=== PATIENT | female | born 1940 | race Caucasian/White ===

== ENCOUNTER 2022-01-14 10:43 | Emergency (ER) | payer OTHER ==
[~2022-01-14] VITALS: Ht 147.3 cm; Wt 77.1 kg
[2022-01-14 10:57] VITALS: BP_SYST 161
[2022-01-14] MEDS ORDERED: PROCHLORPERAZINE EDISYLATE 10 MG/2 ML VIAL IVP ONE (11:45)
[2022-01-14] MEDS ORDERED: KETOROLAC TROMETHAMINE 15 MG VIAL IVP ONE (11:45)
[2022-01-14 11:58] LABS: BASOPHILS # (AUTO) 0.1 K/uL (0.0-0.2); BASOPHILS % (AUTO) 1.1 % (0.0-2.0); HEMATOCRIT 38.4 % (36-48); HEMOGLOBIN 13.1 g/dL (12.0-16.0); LYMPHOCYTES # (AUTO) 1.1 K/uL (1.0-5.5); MEAN CORPUSCULAR HEMOGLOBIN 28 pg (27-31); MEAN CORPUSCULAR HGB CONC 34 % (32-36); MEAN CORPUSCULAR VOLUME 83 fL (79.0-98.0); MONOCYTES # (AUTO) 0.4 K/uL (0.0-1.0); MONOCYTES % (AUTO) 8.4 % (1.7-9.3); NEUTROPHILS # (AUTO) 3.1 K/uL (1.8-7.7); NEUTROPHILS % (AUTO) 66.5 % (40.0-70.0); PLATELET COUNT (AUTO) 250 K/uL (130-430); RED BLOOD CELL COUNT(AUTO) 4.61 MIL/uL (4.2-6.2); RED CELL DISTRIBUTION WIDTH 13.7 % (9.0-15.0); WHITE BLOOD COUNT (AUTO) 4.6 K/uL (4.8-10.8)
[2022-01-14 12:13] LABS: ANION GAP 6 (5-15); CALCIUM 8.6 mg/dL (8.4-11.0); CHLORIDE 97 mmol/L (98-107); CREATININE 0.63 mg/dL (0.55-1.30); GLUCOSE 106 mg/dL (70-99); POTASSIUM 3.7 mmol/L (3.5-5.1); SODIUM SERUM 134 mmol/L (136-145); UREA NITROGEN, BLOOD 10 mg/dL (8-21)
[2022-01-14 12:22] LABS: ALANINE AMINOTRANSFERASE 21 U/L (12-78); ALBUMIN 3.5 g/dL (3.4-4.8); ASPARTATE AMINOTRANSFERASE 19 U/L (10-37); TOTAL BILIRUBIN 0.4 mg/dL (0.0-1.0)
[2022-01-14] MEDS ORDERED: TRAM50TA PO (13:52)
[2022-01-14 14:08] VITALS: BP_SYST 136
== END 2022-01-14 14:07 | disposition home or self-care (01) ==
LOC: SED 10:43
DX: B34.9 Viral infection, unspecified (principal); G44.209 Tension-type headache, unspecified, not intractable; M79.602 Pain in left arm; I10 Essential (primary) hypertension; Z79.899 Other long term (current) drug therapy
CPT/HCPCS: 99285; 96374; 70450; 71045; 96375; 80053; 83880; 85025; 84484; 36415; 93005; 76376; J1885; J0780

== ENCOUNTER 2022-05-28 05:57 | Emergency (ER) | payer OTHER ==
[~2022-05-28] VITALS: Ht 149.9 cm; Wt 81.2 kg
[~2022-05-28 05:57] MED LIST: TRAM50TA PO
[2022-05-28 06:13] VITALS: BP_SYST 141
[2022-05-28 06:51] LABS: BASOPHILS # (AUTO) 0.1 K/uL (0.0-0.2); BASOPHILS % (AUTO) 0.9 % (0.0-2.0); EOSINOPHILS # (AUTO) 0.1 K/uL (0.0-0.4); HEMATOCRIT 35.9 % (36-48); LYMPHOCYTES % (AUTO) 12.1 % (20.5-51.5); MEAN CORPUSCULAR HEMOGLOBIN 28 pg (27-31); MEAN CORPUSCULAR HGB CONC 34 % (32-36); MEAN CORPUSCULAR VOLUME 83 fL (79.0-98.0); MONOCYTES # (AUTO) 0.8 K/uL (0.0-1.0); MONOCYTES % (AUTO) 9.6 % (1.7-9.3); NEUTROPHILS # (AUTO) 6.6 K/uL (1.8-7.7); NEUTROPHILS % (AUTO) 76.4 % (40.0-70.0); PLATELET COUNT (AUTO) 442 K/uL (130-430); RED CELL DISTRIBUTION WIDTH 14.4 % (9.0-15.0); WHITE BLOOD COUNT (AUTO) 8.6 K/uL (4.8-10.8)
[2022-05-28 07:08] LABS: ANION GAP 9 (5-15); CALCIUM 8.7 mg/dL (8.4-11.0); CHLORIDE 101 mmol/L (98-107); CREATININE 0.77 mg/dL (0.55-1.30); GLUCOSE 126 mg/dL (70-99); UREA NITROGEN, BLOOD 13 mg/dL (8-21)
[2022-05-28 07:12] LABS: ALANINE AMINOTRANSFERASE 17 U/L (12-78); ALBUMIN 3.1 g/dL (3.4-4.8); ASPARTATE AMINOTRANSFERASE 13 U/L (10-37); C-REACTIVE PROTEIN QUANT 5.1 mg/dL (0-0.5); TOTAL BILIRUBIN 0.4 mg/dL (0.0-1.0)
[2022-05-28 07:27] LABS: URIC ACID 6.1 mg/dL (2.4-7.0)
[2022-05-28] MEDS: HYDROcodone/ACETAMIN 7.5-325 MG TAB PO ONE (08:30)
[2022-05-28 10:08] LABS: BODY FLUID COLOR YELLOW (LT YELLOW); BODY FLUID SOURCE/ TYPE JOINT; BODY FLUID TOTAL VOLUME 2 mL; SOURCE/TYPE ,BODY FLUID OTHER
[2022-05-28 10:09] LABS: BF APPEARANCE UNSPUN HAZY (CLEAR); LYMPHOCYTES, BODY FLUID 5 %; NEUTROPHIL, BODY FLUID 95 %; RBC, BODY FLUID 72 /uL; WBC, BODY FLUID 99 /uL
[2022-05-28 10:14] LABS: ERYTHROCYTE SEDIMENTATION RATE 62 MM/HR (0-20)
[2022-05-28] MEDS ORDERED: HYDR-3917 PO (10:26)
[2022-05-28 10:33] VITALS: BP_SYST 141
[2022-05-28 11:10] LABS: BODY FLUID CRYSTALS NO CRYSTALS SEEN (None Seen)
== END 2022-05-28 10:33 | disposition home or self-care (01) ==
LOC: SED 05:57
DX: G89.29 Other chronic pain (principal); M25.562 Pain in left knee; I10 Essential (primary) hypertension; Z79.899 Other long term (current) drug therapy
CPT/HCPCS: 36415; 73564; 80053; 82947; 84157; 84550; 85025; 85651-TC; 86140; 87070-TC; 89051-TC; 89060-TC; 93971; 99285

== ENCOUNTER 2022-06-22 10:35 | Inpatient (IN) | payer OTHER ==
[~2022-06-22] VITALS: Ht 147.3 cm; Wt 79.8 kg
[~2022-06-22 10:35] MED LIST changes: +HYDR-3917 PO
[2022-06-22 10:50] VITALS: BP_SYST 132
--- NOTE | 2022-06-22 10:54 | NUR ---
Horace trujillo in ED - 06/22/22 at 1100 by ALEX LEXIE Blackman at bedside examining patient.
[2022-06-22 10:58] LABS: BASOPHILS # (AUTO) 0.1 K/uL (0.0-0.2); BASOPHILS % (AUTO) 0.9 % (0.0-2.0); EOSINOPHILS % (AUTO) 0.4 % (0.0-4.0); HEMATOCRIT 37.6 % (36-48); HEMOGLOBIN 12.1 g/dL (12.0-16.0); LYMPHOCYTES # (AUTO) 0.9 K/uL (1.0-5.5); LYMPHOCYTES % (AUTO) 10.4 % (20.5-51.5); MEAN CORPUSCULAR HEMOGLOBIN 27 pg (27-31); MEAN CORPUSCULAR HGB CONC 32 % (32-36); MEAN CORPUSCULAR VOLUME 83 fL (79.0-98.0); MONOCYTES # (AUTO) 0.7 K/uL (0.0-1.0); MONOCYTES % (AUTO) 8.4 % (1.7-9.3); NEUTROPHILS # (AUTO) 6.7 K/uL (1.8-7.7); NEUTROPHILS % (AUTO) 79.9 % (40.0-70.0); PLATELET COUNT (AUTO) 480 K/uL (130-430); RED BLOOD CELL COUNT(AUTO) 4.52 MIL/uL (4.2-6.2); RED CELL DISTRIBUTION WIDTH 14.5 % (9.0-15.0); WHITE BLOOD COUNT (AUTO) 8.3 K/uL (4.8-10.8)
--- NOTE | 2022-06-22 11:00 | NUR ---
Patient to ER bed 4 to gown for evaluation. Side rails up. Report given to COLIN ARROYO.
--- NOTE | 2022-06-22 11:00 | NUR ---
PT BIB SON, AWAKE AND ALERT. AOX4, NO SOB OR DISTRESS. PT C/O PAIN TO LEFT KNEE, 10/22. PT STATES THAT HER PCP TOLD HER TO COME TO ER TO GET ADMITED FOR A PROCEDURE TOMMOROW. PT STATED SHE HAD L KNEE SURGERY LAST MAR, AND HAS BEEN FEELING PAIN SINCE APRIL.
--- NOTE | 2022-06-22 11:01 | NUR ---
MD DR KRUEGER AT BEDSIDE
[2022-06-22 11:09] LABS: ANION GAP 8 (5-15); CALCIUM 9.3 mg/dL (8.4-11.0); CHLORIDE 98 mmol/L (98-107); CREATININE 0.56 mg/dL (0.55-1.30); GLUCOSE 118 mg/dL (70-99); UREA NITROGEN, BLOOD 14 mg/dL (8-21)
[2022-06-22 11:14] LABS: ALANINE AMINOTRANSFERASE 14 U/L (12-78); ALBUMIN 3.2 g/dL (3.4-4.8); ASPARTATE AMINOTRANSFERASE 10 U/L (10-37); TOTAL BILIRUBIN 0.3 mg/dL (0.0-1.0)
[2022-06-22] MEDS ORDERED: POTASSIUM CHLORIDE 20 MEQ TAB.PRT.SR PO ONE (11:30)
[2022-06-22] MEDS ORDERED: D5/0.45 NS 1,000 ML IV ONE (12:00)
--- NOTE | 2022-06-22 12:41 | NUR ---
Admit bed requested Patient will be admitted to care of Dr. DENTON. Admitted to MED SURGE unit. Diagnosis SEPTIC LEFT KNEE Inpatient (Yes or No) YES Observation (Yes or No) NO Orientation concerns or request close to nursing station (Yes or No) NO Covid Status NEGATIVE On vent or bipap NO Isolation requirements NO Needs a sitter NO From Home (Yes or if No enter name of facility) HOME Requires Dialysis (Yes or No) NO Med Rec Completed (Yes of No) YES
[2022-06-22] MEDS ORDERED: METOPROLOL SUCCINATE 25 MG TAB.SR.24H (TOPROL XL) PO ONE (13:00)
[2022-06-22] MEDS ORDERED: TRIA1TAB96 PO (13:53)
--- NOTE | 2022-06-22 13:53 | NUR ---
MED REC COMPLETED
--- NOTE | 2022-06-22 14:45 | NUR ---
Miss Prabhakar arrives at room 110-A. she is accomanied by her son Tyson. She ambulates to the rest room with no assistance. She states that she would just like to have time to complete the meal that she has brought with her from the ED. she is stable and this request is honored. She is sitting at the side of the bed eating.
--- NOTE | 2022-06-22 15:04 | NUR ---
Patient will be admitted to care of DR DENTON. Admitted to MED SURGE unit. Will go to room 110A. Belongings list completed. Complete and up to date summary report printed. SBAR report to be given at bedside with opportunity for questions.
[2022-06-22 15:45] VITALS: BP_SYST 133
--- NOTE | 2022-06-22 15:45 | NUR ---
Miss Prabhakar is admitted to 110-A. she denies pain. she states that her Left knee hurts when she ambulates a lot. Her skin has been noted to be intact. she c/o feeling very cold in the room. she is assisted to reapply her pants after the skin check. she is aware of the possibility of a surgical procedure tomorrow on her Left knee. she states that her daughter Maria D lives in her home. She has 7children and many of them are involved in her care. she c/o discomfort from the Left AC IV site. Her access was moved to her right fore arm and this has been well tolerated. She is resting quietly with her son and daughter at the bedside with one grand daughter as well.
[2022-06-22 20:00] VITALS: BP_SYST 137
[2022-06-23 01:50] VITALS: BP_SYST 124
--- NOTE | 2022-06-23 07:16 | NUR ---
CLOSING NOTES: Patient is in bed resting no s/s of distress is noted, chest rise is even and unlabored. Patient is AA&Ox4 able to follow commands and has call light within reach. Patient has been assessed as per protocol, and some tenderness is reported to the left knee. Education has been provided on NPO status for pending procedure on the left knee and patient verbalized understanding. Surgical check list has been reviewed and new orders have been noted and carried. All current shift needs have been met, patient is stable, and safety measures are in place as per protocol. Will differ care to AM shift for continuity of care.
[2022-06-23 08:00] VITALS: BP_SYST 150
--- NOTE | 2022-06-23 09:24 | NUR ---
CONSULTATION PAGED REASON FOR CONSULTATION SEPTIC LEFT KNEE WAS CONSULT CALED?Y PERSON WHO WAS NOTIFIED:ESTHER CONSULTING PHYSICIAN:DARBY KILGORE SURGICAL GARMENT ASSEMBLER SPECIALTY:ID SURGICAL GARMENT ASSEMBLER PHONE NUMBER:[phone] REQUESTING PHYSICIAN:REGINA BLOCK
[2022-06-23] MEDS ORDERED: POTASSIUM CHLORIDE 20 MEQ TAB.PRT.SR PO ONE (11:00)
[2022-06-23] MEDS: METOPROLOL SUCCINATE 25 MG TAB.SR.24H (TOPROL XL) PO SCH (11:47)
[2022-06-23 12:00] VITALS: BP_SYST 136
[2022-06-23 12:59] LABS: ALANINE AMINOTRANSFERASE 10 U/L (12-78); ALBUMIN 2.6 g/dL (3.4-4.8); ANION GAP 10 (5-15); ASPARTATE AMINOTRANSFERASE 11 U/L (10-37); CALCIUM 8.8 mg/dL (8.4-11.0); CHLORIDE 104 mmol/L (98-107); CREATININE 0.58 mg/dL (0.55-1.30); GLUCOSE 110 mg/dL (70-99); TOTAL BILIRUBIN 0.3 mg/dL (0.0-1.0); UREA NITROGEN, BLOOD 12 mg/dL (8-21)
[2022-06-23 20:00] VITALS: BP_SYST 138
--- NOTE | 2022-06-23 22:45 | NUR ---
PAGED DOCTOR BERTIN.
[2022-06-23 23:20] LABS: BILIRUBIN,URINE NEGATIVE (NEGATIVE); BLOOD, URINE NEGATIVE (NEGATIVE); CLARITY/URINE CLEAR (CLEAR); COLOR,URINE YELLOW (YELLOW); GLUCOSE,URINE NEGATIVE (NEGATIVE); KETONES,URINE NEGATIVE (NEGATIVE); LEUKOCYTE ESTERASE ,URINE NEGATIVE (NEGATIVE); NITRITE, URINE NEGATIVE (NEGATIVE); PROTEIN URINE NEGATIVE (NEGATIVE); UROBILINOGEN,URINE 0.2 (0.2-1.0)
[2022-06-24] VITALS: BP_SYST 115
--- NOTE | 2022-06-24 01:00 | NUR ---
2PAGED PAGED DOCTOR BERTIN
--- NOTE | 2022-06-24 01:30 | NUR ---
HEAVENLY SRINIVASAN Addendum: 06/24/[address] CNA DINA BURDICK
--- NOTE | 2022-06-24 02:40 | NUR ---
2 HEAVENLY SRINIVASAN Addendum: 06/24/[address] CNA DINA BURDICK
--- NOTE | 2022-06-24 03:04 | NUR ---
PAGED EXCHANGE AND WAS INFORMED THAT DOCTOR INDERJIT IS BONUS CLERK. WILL CALL PHONE
--- NOTE | 2022-06-24 03:05 | NUR ---
PAGED DOCTOR INDERJIT LEFT A MESSAGE
[2022-06-24] MEDS: HYDROcodone/ACETAMIN 5-325 MG TAB (NORCO/ VICODIN) PO PRN (05:34)
[2022-06-24 08:00] VITALS: BP_SYST 155
[2022-06-24] MEDS ORDERED: POTASSIUM CHLORIDE 20 MEQ TAB.PRT.SR PO ONE (08:15)
--- NOTE | 2022-06-24 08:37 | NUR ---
follow up consult dr dempsey s/raz boss
[2022-06-24] MEDS: METOPROLOL SUCCINATE 25 MG TAB.SR.24H (TOPROL XL) PO SCH (08:55)
[2022-06-24 11:32] VITALS: BP_SYST 129
[2022-06-24 11:53] LABS: ALANINE AMINOTRANSFERASE 15 U/L (12-78); ALBUMIN 2.5 g/dL (3.4-4.8); ANION GAP 6 (5-15); ASPARTATE AMINOTRANSFERASE 8 U/L (10-37); CALCIUM 8.5 mg/dL (8.4-11.0); CHLORIDE 105 mmol/L (98-107); CREATININE 0.48 mg/dL (0.55-1.30); GLUCOSE 121 mg/dL (70-99); TOTAL BILIRUBIN 0.2 mg/dL (0.0-1.0); UREA NITROGEN, BLOOD 7 mg/dL (8-21)
[2022-06-24] MEDS ORDERED: ceFAZolin SODIUM 1 GM in D5W 50 ML IV ONE (13:45)
--- NOTE | 2022-06-24 14:44 | NUR ---
Dietitian Recommendations * Continue cardiac diet * Ordered: Kelechi CARNES for sepsis GS, MPH, RD Please refer to RD Assessment for further details. Thanks! Addendum: 06/24/22 at [address] Amended: Links added.
[2022-06-24] MEDS ORDERED: MILK OF MAGNESIA 30 ML UDC PO PRN (16:00)
[2022-06-24] MEDS ORDERED: POTASSIUM CHLORIDE 20 MEQ/PKT PACKET PO ONE (17:00)
[2022-06-24 17:36] VITALS: BP_SYST 120
--- NOTE | 2022-06-24 18:45 | NUR ---
Miss Mcghee has been assessed as indicated. She continues to be pleasant ans cooperative. IV abx have been started. IV access has been replaced. She is aware and compliant with the plan to have I and D to her left knee tomorrow at 10am by Dr Dominguez. However, when she was presented with the surgical consent form and the risks ,as indicated by the physician, were reviewed with her, she became hesitant. She states that she will have her family, that will visit later this evening, be aware of the risks also. And she will wait until later to sign the form. This rfp writer placed a call to her son Tyson ([phone]) to inform him of her hesitancy. Miss Mcghee had already called him. He expressed that he understood the need for her to precede with the surgery as planned. And that he understood that all possible risks had to be expressed in the consent form. He stated that he and his siblings (Miss Mcghee has 7 children) would get together and talk to her to reassure of the need for the procedure. He stated that he would be in to visit her this evening and he will be here tomorrow for the surgical procedure. Miss Mcghee is anxious but has no physical s/s of distress
[2022-06-24 20:00] VITALS: BP_SYST 104
--- NOTE | 2022-06-24 20:00 | NUR ---
PT IS AWAKE AND ALERT,ON ROOM AIR AND AMBULATORY. PT IS CURRENTLY WAITING FOR FAMILY (WHICH WAS THEIR FRIENDS ACTUALLY)
--- NOTE | 2022-06-24 21:00 | NUR ---
PT HAS SIGN A CONSENT FOR PROCEDURE TOMORROW.
[2022-06-24] MEDS: ceFAZolin SODIUM 1 GM in D5W 50 ML IV SCH (21:47)
[2022-06-25] VITALS (9 sets, daily range): BP systolic 123–166
[2022-06-25] MEDS: D5/0.45 NS 1,000 ML IV SCH ×2 (00:40→20:00)
--- NOTE | 2022-06-25 04:00 | NUR ---
pt is sleeping, no discomfort noted and denies pain
[2022-06-25 07:39] LABS: INR 1.1 (0.8-1.2)
[2022-06-25] MEDS: METOPROLOL SUCCINATE 25 MG TAB.SR.24H (TOPROL XL) PO SCH (09:37)
[2022-06-25] MEDS: ceFAZolin SODIUM 1 GM in D5W 50 ML IV SCH ×2 (09:38→21:40)
--- NOTE | 2022-06-25 11:00 | NUR ---
Miss Prabhakar has been assesses as indicated. She is being transported to OR for a Iand D of the left knee. She is compliant with this plan and her son Tyson is at the bedside. Pre-op items have been completed.
[2022-06-25] MEDS ORDERED: BUPIVACAINE /EPINEPHRINE/PF 0.25% 30 ML VIAL ONE (11:21)
[2022-06-25] MEDS ORDERED: PROPOFOL 200MG/ 20ML VIAL (DIPRIVAN) IV ONE (11:21)
[2022-06-25] MEDS ORDERED: fentaNYL CITRATE/PF 100 MCG/2 ML AMP ONE (11:21)
[2022-06-25] MEDS ORDERED: DEXAMETHASONE SOD PHOSPHATE 4 MG/ML VIAL ONE (11:21)
[2022-06-25] MEDS ORDERED: DESFLURANE 15 MIN GAS INH ONE (11:21)
[2022-06-25] MEDS ORDERED: MIDAZOLAM HCL 2 MG/2 ML VIAL (VERSED) ONE (11:21)
[2022-06-25] MEDS ORDERED: BUPIVACAINE /PF 0.25% 30 ML VIAL INJ ONE (11:21)
[2022-06-25] MEDS ORDERED: NS IRRIG SOLN 1000 ML IR ONE (11:21)
[2022-06-25] MEDS ORDERED: KETOROLAC TROMETHAMINE 30 MG VIAL ONE (11:21)
[2022-06-25] MEDS ORDERED: NS IRRIG SOLN 5000 ML IR ONE (11:21)
[2022-06-25] MEDS ORDERED: LR 1,000 ML IV.SOLN IV ONE (11:21)
[2022-06-25] MEDS ORDERED: SUGAMMADEX SODIUM 200 MG/2 ML VIAL IV ONE (11:21)
[2022-06-25] MEDS ORDERED: ONDANSETRON HCL 4 MG/2 ML VIAL ONE (11:21)
[2022-06-25] MEDS ORDERED: ceFAZolin SODIUM 2 GM VIAL ONE (11:21)
[2022-06-25] MEDS ORDERED: ROCURONIUM BROMIDE 10 MG/ML (ZEMURON) ONE (11:21)
[2022-06-25] MEDS ORDERED: SODIUM HYPOCHLORITE 0.25% ONE (11:21)
[2022-06-25 12:26] LABS: BASOPHILS % (AUTO) 0.7 % (0.0-2.0); EOSINOPHILS # (AUTO) 0.1 K/uL (0.0-0.4); EOSINOPHILS % (AUTO) 1.4 % (0.0-4.0); HEMATOCRIT 33.5 % (36-48); HEMOGLOBIN 10.6 g/dL (12.0-16.0); LYMPHOCYTES # (AUTO) 1.3 K/uL (1.0-5.5); LYMPHOCYTES % (AUTO) 21.2 % (20.5-51.5); MEAN CORPUSCULAR HEMOGLOBIN 27 pg (27-31); MEAN CORPUSCULAR HGB CONC 32 % (32-36); MEAN CORPUSCULAR VOLUME 83 fL (79.0-98.0); MONOCYTES # (AUTO) 0.7 K/uL (0.0-1.0); MONOCYTES % (AUTO) 12.1 % (1.7-9.3); NEUTROPHILS # (AUTO) 3.9 K/uL (1.8-7.7); NEUTROPHILS % (AUTO) 64.6 % (40.0-70.0); PLATELET COUNT (AUTO) 382 K/uL (130-430); RED BLOOD CELL COUNT(AUTO) 4.02 MIL/uL (4.2-6.2); RED CELL DISTRIBUTION WIDTH 14.3 % (9.0-15.0); WHITE BLOOD COUNT (AUTO) 6.1 K/uL (4.8-10.8)
[2022-06-25] MEDS ORDERED: MEPERIDINE HCL/PF 25 MG/ML DISP.SYRIN IVP PRN (12:30)
[2022-06-25] MEDS ORDERED: HYDROmorphone 1 MG/ML INJ. CARTRIDGE IVP PRN ×2 (12:30)
[2022-06-25] MEDS ORDERED: LR 1,000 ML IV SCH (12:30)
[2022-06-25] MEDS ORDERED: hydrALAZINE HCL 20 MG/ML VIAL IVP PRN (12:30)
[2022-06-25] MEDS ORDERED: METOCLOPRAMIDE HCL 10 MG/2 ML VIAL IVP PRN (12:30)
[2022-06-25] MEDS ORDERED: LABETALOL 100 MG/ 20ML VIAL IVP PRN (12:30)
[2022-06-25] MEDS ORDERED: ACETAMINOPHEN I.V. 1000 MG 100 ML IV ONE (12:43)
[2022-06-25 12:45] LABS: ALANINE AMINOTRANSFERASE 13 U/L (12-78); ALBUMIN 2.6 g/dL (3.4-4.8); ANION GAP 7 (5-15); ASPARTATE AMINOTRANSFERASE 9 U/L (10-37); CALCIUM 8.5 mg/dL (8.4-11.0); CHLORIDE 104 mmol/L (98-107); CREATININE 0.49 mg/dL (0.55-1.30); GLUCOSE 111 mg/dL (70-99); TOTAL BILIRUBIN 0.3 mg/dL (0.0-1.0); UREA NITROGEN, BLOOD 5 mg/dL (8-21)
[2022-06-25] MEDS ORDERED: oxyCODONE HCL 5 MG TABLET PO PRN (14:15)
[2022-06-25] MEDS ORDERED: HYDROmorphone 1 MG/ML INJ. CARTRIDGE ONE (15:02)
--- NOTE | 2022-06-25 16:05 | NUR ---
Miss Prabhakar returns to room 110-A she is drowsy but arouses easily. The dressing to her LLE is CDI. She has on SCD to the RLE. She denies pain. c/o a very dry throat. She repeatedly states that she thought she was in the morgue upon awakening in PACU. She remains pleasant with several family members at the bedside.
[2022-06-25] MEDS: VANCOMYCIN HCL 1,250 MG in NS 250 ML IV SCH (16:50)
[2022-06-25] MEDS: HYDROcodone/ACETAMIN 5-325 MG TAB (NORCO/ VICODIN) PO PRN (17:10)
[2022-06-25] MEDS ORDERED: PHENOL/ORAL ANESTHETIC 177 ML BOTTLE MM PRN (17:15)
[2022-06-25 18:28] LABS: WBC, BODY FLUID 53800 /uL
[2022-06-25 18:29] LABS: RBC, BODY FLUID 12400 /uL
--- NOTE | 2022-06-25 18:45 | NUR ---
Miss Prabhakar has been treated for pain x1 since returning from PACU. she found it difficult to swallow her pills so the 2nd half of the pill was crushed in apple sauce and she tolerates this well. She c/o a sore dry throat she has been given water and ice chips. Chloraseptic spray was ordered. she was assisted to via fracture aaron. this was well tolerated. VS as indicated. Her daughter Maria D is at the bedside to assist with her dinner. She has no s/s of distress or discomfort.
--- NOTE | 2022-06-25 19:15 | NUR ---
Handoff has been given to Emre
--- NOTE | 2022-06-25 20:00 | NUR ---
PT IS AWAKE AND ALERT AND DAUGHTER AT BED SIDE. PT ABLE CARRY CONVERSATION. DENIES PAIN. PT REQUESTED BED BARNEY
--- NOTE | 2022-06-25 20:33 | NUR ---
Pharmacy states that chloraceptic spray is out of stock. Throat lozenges will be ordered
[2022-06-25] MEDS ORDERED: BENZOCAINE/MENTHOL 1 EACH LOZENGE MM PRN (20:45)
[2022-06-25] MEDS: rifAMPin 300 MG CAPSULE PO SCH (21:40)
--- NOTE | 2022-06-25 22:00 | NUR ---
PT IS ON PUREWICK.SHE SHE ISNT ABLE TO AMBULATE
[2022-06-26 00:22] VITALS: BP_SYST 120
--- NOTE | 2022-06-26 02:00 | NUR ---
pt resting on the bed. she voided, lower the bed
[2022-06-26 07:00] VITALS: BP_SYST 132
--- NOTE | 2022-06-26 08:00 | NUR ---
PT sitting up in bed awake and a/ox4. left arm iv sl. voiding and stooling. surgical wound dressing intact to left knee. No SOB, no acute distress at this time.
[2022-06-26 09:58] LABS: INR 1.1 (0.8-1.2); PROTHROMBIN TIME 10.8 SECS (9.5-12.5)
[2022-06-26] MEDS: ASPIRIN 81 MG TABLET(ECOTRIN) PO SCH ×2 (11:02→22:28)
[2022-06-26] MEDS: rifAMPin 300 MG CAPSULE PO SCH ×2 (11:02→22:31)
[2022-06-26] MEDS: HYDROcodone/ACETAMIN 5-325 MG TAB (NORCO/ VICODIN) PO PRN ×3 (11:03→18:48)
[2022-06-26] MEDS: METOPROLOL SUCCINATE 25 MG TAB.SR.24H (TOPROL XL) PO SCH (11:04)
[2022-06-26] MEDS ORDERED: HEPARIN SODIUM,PORCINE 5,000 UNITS/ML VIAL SUBCUT ONE (11:30)
[2022-06-26 12:00] VITALS: BP_SYST 141
[2022-06-26] MEDS: VANCOMYCIN HCL 1,250 MG in NS 250 ML IV SCH ×2 (14:28→22:40)
--- NOTE | 2022-06-26 16:20 | NUR ---
ASSUMED CARE: RECEIVED REPORT TO RODRICK AND ASSUMED CARE.PATIENT IN THE ROOM,PICC LINE PLACEMENT ON GOING.
--- NOTE | 2022-06-26 18:15 | NUR ---
PICC LINE PLACEMENT: PICC LINE PLACED ASEPTICALLY PICC NURSE. STAT PORTABLE X-RAY DONE.OKAY TO USED PER PICC NURSE.
[2022-06-26] MEDS: D5/0.45 NS 1,000 ML IV SCH (18:50)
--- NOTE | 2022-06-26 18:55 | NUR ---
EVENING ROUNDS: DINNER SERVED.SON AT THE BEDSIDE. CALL LIGHT WITH IN REACH. BED LOCKED AT LOWEST POSITION. LEFT KNEE DRESSING CLEAN AND DRY.CONTINUE TO MONITOR.
[2022-06-26 20:00] VITALS: BP_SYST 147
[2022-06-26] MEDS: HEPARIN SODIUM,PORCINE 5,000 UNITS/ML VIAL SUBCUT SCH (22:35)
--- NOTE | 2022-06-27 01:05 | NUR ---
V/S, Restroom Patient ambulated to restroom w/ assist and FWW. Provided a BSC to provide a raised toilet w/handles and she reports this was comfortable and easier on her when using restroom. She returned to bed. V/S taken and B/P was elevated; allowed her to rest few minutes and on second repeat B/P decreased from first reading yet it's still high (163/72). She informed me that she has not been taking her nightly BP med.
[2022-06-27 01:15] VITALS: BP_SYST 163
--- NOTE | 2022-06-27 01:35 | NUR ---
ELEVATED BP / DR. DENTON Pageyao and s/w Dr. Denton and informed BP 163/72, HR 66. Patient reports she takes one BP med at night and it has not been continued here. Received medication orders; KENYATTA
[2022-06-27] MEDS ORDERED: ONDANSETRON HCL 4 MG/2 ML VIAL IVP PRN (01:45)
[2022-06-27] MEDS: hydrALAZINE HCL 20 MG/ML VIAL IVP PRN (02:15)
--- NOTE | 2022-06-27 02:15 | NUR ---
Hydralazine, restroom Patient given Hyralazine IVP, she refused Zofran. Assisted her to restroom for void. She walked w/FWW. Returned to bed and resting in comfortable position. c/o discomfort to PICC line, she said double lumen lines are dangling and skin is sensitive. Lines are patent, blood return noted, no redness, no infiltration. Secured/wrapped w/gauze and secured IV line w/ tape.
--- NOTE | 2022-06-27 04:14 | NUR ---
awake, restroom Patient requesting assistance to restroom. Ambulated w/ assist and FWW. Returned to bed, no distress. wctm
--- NOTE | 2022-06-27 07:38 | NUR ---
RN OPENING NOTE REPORT WAS ENDORSED BY NIGHT NURSE. PATIENT APPEARS TO BE RESTING WITH NO SIGNS OF ANY DISTRESS, BREATHING IS EQUAL AND NON LABORED. PATIENT HAS CALL LIGHT WITH IN REACH. PATIENT HAS NO OTHER NEEDS AT THIS TIME.
[2022-06-27 08:18] VITALS: BP_SYST 157
[2022-06-27] MEDS: rifAMPin 300 MG CAPSULE PO SCH ×2 (08:34→23:25)
[2022-06-27] MEDS: METOPROLOL SUCCINATE 25 MG TAB.SR.24H (TOPROL XL) PO SCH (08:34)
[2022-06-27] MEDS: HYDROcodone/ACETAMIN 5-325 MG TAB (NORCO/ VICODIN) PO PRN (08:35)
[2022-06-27] MEDS: ASPIRIN 81 MG TABLET(ECOTRIN) PO SCH ×2 (08:35→23:25)
[2022-06-27] MEDS: HEPARIN SODIUM,PORCINE 5,000 UNITS/ML VIAL SUBCUT SCH ×2 (08:37→23:28)
--- NOTE | 2022-06-27 08:39 | NUR ---
MEDICATION PATIENT AMBULATED TO BATHROOM AND BACK TO BED WITH FWW. PATIENT COMPLAINS OF PAIN MEDICATED PER ORDER. PATIENT EDUCATE ON IS ABLE TO INSPIRE 1750. PATIENT EDUCATED LIFE CONSULTANT LIGHT FOR ASSISTANCE TO GET CALL PRIOR TO GETTING UP. CALL LIGHT IS WITH HER. NO OTHER NEEDS AT THIS TIME.
[2022-06-27 09:29] LABS: C-REACTIVE PROTEIN QUANT 6.3 mg/dL (0-0.5)
--- NOTE | 2022-06-27 10:45 | NUR ---
rn rounding patient is awake and alert sitting in bed, family is at bedside.Patient shows no distress, breathing is equal and non labored. educated concrete mason light for assistance call light is with her.Patient educated on IS able to inspire 1750. patient dressing is clean dry and intact no other needs at this time.
[2022-06-27 11:36] VITALS: BP_SYST 136
--- NOTE | 2022-06-27 13:00 | NUR ---
douglas blackman for clearance for dc per Addendum: 06/27/22 at 1933 by [facility] House RN dr. blackman spoke with dr. vanessa herrera to discharge. patient made aware waiting for antibiotics to get approved prior to be sending home patient has no other needs at this time. call light is with her educated to use for assistance.
[2022-06-27] MEDS ORDERED: RIFA150C7 PO (13:05)
[2022-06-27] MEDS ORDERED: METOPROLOL SUCCINATE 25 MG TAB.SR.24H (TOPROL XL) PO ONE (14:00)
[2022-06-27] MEDS ORDERED: VANC1PLA9 IV (14:59)
[2022-06-27] MEDS ORDERED: VANC1.2527 IV (15:15)
[2022-06-27 18:11] VITALS: BP_SYST 141
--- NOTE | 2022-06-27 19:24 | NUR ---
rn closing note report was endorsed to night nurse. patient is awake and alert sitting in bed. Spoke with Dr. Dominguez hold discharge per patient does not have pain medication prescription. Patient's son says he need to get the home ready prior to bringing her home tomorrow. ok to d.c in the morning. patient's iv antibiotic Vanco order approved by insurance, pharmacy and nurse home health aware and in contact with son Tyson. patient is aware of plan of care. educated to use IS able to inspire 1750. per keep dressing in place for one week then follow up with him in one week. follow up with Dr. Perez for antibiotics. Per if patient wants to shower able to remove connie bandage then cling wrapp the whole dressing shower to avoid getting it wet, then after shower put connie wrap back on. patient has no other needs at this time. call light is with her educated to use for assistance.
--- NOTE | 2022-06-27 19:45 | NUR ---
Openinng note Received SBAR report from DINA Sandhu. Upon rounds patient was in restroom, door was locked, and patient said "I'm in here". I returned in few minutes and she was back in bed. V/S taken and stable. Presently she denies pain and reports does not need pain med at this time. Updated her on discharge plan (ortho said ok to stay tonight and will DC in am). Safety precautions in place and call light w/in reach.
[2022-06-27 20:00] VITALS: BP_SYST 147
[2022-06-27] MEDS: VANCOMYCIN HCL 1,250 MG in NS 250 ML IV SCH (23:25)
--- NOTE | 2022-06-27 23:45 | NUR ---
ROUNDS , v/s patient resting in bed, V/s taken and stable, denies pain. Pain medication offered and declines, does want med. Ambulated to restroom returned to bed. IV antibiotic infusing well.
[2022-06-28] VITALS: BP_SYST 155
[2022-06-28] MEDS: D5/0.45 NS 1,000 ML IV SCH (00:05)
--- NOTE | 2022-06-28 07:20 | NUR ---
closing note Endorsed care to DINA Marmolejo. Patient is stable, no distress. . Assisted her to restroom and informed Francie patient is still in restroom.
[2022-06-28 08:00] VITALS: BP_SYST 160
[2022-06-28] MEDS: METOPROLOL SUCCINATE 25 MG TAB.SR.24H (TOPROL XL) PO SCH (08:58)
[2022-06-28] MEDS: rifAMPin 300 MG CAPSULE PO SCH (08:58)
[2022-06-28] MEDS: ASPIRIN 81 MG TABLET(ECOTRIN) PO SCH (08:58)
[2022-06-28] MEDS: HEPARIN SODIUM,PORCINE 5,000 UNITS/ML VIAL SUBCUT SCH (09:02)
--- NOTE | 2022-06-28 10:38 | NUR ---
DISCHARGE PLANNING ( DELAY OF DISCHARGE) GEOVANNI FROM [facility] )CALLED AND SAID THAT HOME HEALTH NURSE TO ADMINISTER IV ANTIBIOTIC WILL NOT BE AVAILABLE TILL TOMORROW INCLUDING IV ANTIBIOTIC. [facility] OCCUPATIONAL ANALYST OF PATIENT WAS ON ANOTHER LINE AND MADE AWARE ABOUT THE HOME HEALTH NURSE TO ADMINISTER IV ABT WILL NOT BE AVAILABLE TILL TOMORROW. [facility] AND GEOVANNI BOTH AGREED TO DISCHARGE PATIENT TONIGHT AFTER THE LAST DOSE OF IV ABT. LAST DOSE WILL BE GIVEN TONIGHT AT 5PM.
[2022-06-28] MEDS ORDERED: COMMUNICATION ORDER XX ONE (11:00)
--- NOTE | 2022-06-28 11:08 | NUR ---
CONFIRMED WITH KUMAR SHIN: MED WILL BE DELIVER TONIGHT BETWEEN 7PM-10PM / ALEIDA TO PROVIDE NURSING TO ADMINISTER Addendum: 06/28/22 at 1114 by Jennifer Webber RN patient can discharge after last dose of vancomycin.
--- NOTE | 2022-06-28 11:09 | NUR ---
Discharge appointments and vendors arranged by [employer] S[employer] Jennifer Webber [phone] Dr. Lopez [facility] [employer] will call with date and time Established orthopedic surgeon [employer] will call with date and time Fallon auth#[id number] IV vancomycin for 45 days francrenita will deliver meds to joseph today between 7-10PM they will also provider nursing. This was confirmed with [facility]. Patient to have last dose today before discharge Please call Patient Support Center [phone] for worsening symptoms or trouble getting your medicine. For care needs when provider office is closed, contact Han [facility] at [phone] or Alejandro [facility] [phone].
[2022-06-28 15:12] VITALS: BP_SYST 171
[2022-06-28] MEDS: hydrALAZINE HCL 20 MG/ML VIAL IVP PRN (15:15)
[2022-06-28 15:25] VITALS: BP_SYST 147
[2022-06-28 15:31] VITALS: BP_SYST 147
[2022-06-28] MEDS: VANCOMYCIN HCL 1,250 MG in NS 250 ML IV SCH (17:11)
--- NOTE | 2022-06-28 18:25 | NUR ---
Notified patient son Maximo Prabhakar, will sweet pickle maker at 8pm.
--- NOTE | 2022-06-28 18:29 | NUR ---
Discharge Gave discharge instruction to patient. Patient agreed and signed. Original in the chart, copy with patient. Patient transportation will pick her up at 8pm, will endorse to car shifter nurse.
[2022-06-28] MEDS ORDERED: METOPROLOL SUCCINATE 25 MG TAB.SR.24H (TOPROL XL) PO SCH (21:00)
--- NOTE | 2022-06-30 07:50 | NUR ---
PHYSICAL THERAPY CO-SIGN The Physical Therapy Progress Notes documented by Brand Advisor have been reviewed. Reviewed/Co-Signed by: Aydin Adan Documentation Done by:WARNER MOSELEY PTA Addendum: 06/30/22 at 0750 by Aydin Adan PT Amended: Links added.
== END 2022-06-28 20:00 | disposition home health service (06) | DRG 466 ==
LOC: SED 10:35 → SMU 11:58
PROVIDERS: ADMIT Internal Medicine; ATTEND Internal Medicine
PROC: 3E0T3BZ Introduction of Anesthetic Agent into Peripheral Nerves and Plexi, Percutaneous Approach (ICD-10-PCS; 2021-06-25)
PROC: 3E0T33Z Introduction of Anti-inflammatory into Peripheral Nerves and Plexi, Percutaneous Approach (ICD-10-PCS; 2021-06-25)
PROC: 0SRD0JZ Replacement of Left Knee Joint with Synthetic Substitute, Open Approach (ICD-10-PCS; 2022-06-25)
PROC: 0SPD0JZ Removal of Synthetic Substitute from Left Knee Joint, Open Approach (ICD-10-PCS; principal; 2022-06-25 11:29)
PROC: 05HY33Z Insertion of Infusion Device into Upper Vein, Percutaneous Approach (ICD-10-PCS; 2022-06-26)
PROC: B54MZZA Ultrasonography of Right Upper Extremity Veins, Guidance (ICD-10-PCS; 2022-06-26)
DX: T84.54XA Infection and inflammatory reaction due to internal left knee prosthesis, initial encounter (principal); A41.1 Sepsis due to other specified staphylococcus; M00.062 Staphylococcal arthritis, left knee; E66.9 Obesity, unspecified; I11.9 Hypertensive heart disease without heart failure; Y83.9 Surgical procedure, unspecified as the cause of abnormal reaction of the patient, or of later complication, without mention of misadventure at the time of the procedure; Z20.822 Contact with and (suspected) exposure to COVID-19; Z79.899 Other long term (current) drug therapy; Z88.0 Allergy status to penicillin; Z90.710 Acquired absence of both cervix and uterus; Y92.89 Other specified places as the place of occurrence of the external cause; Z68.36 Body mass index [BMI] 36.0-36.9, adult
CPT/HCPCS: 36415; 71045; 73560-TC; 80053; 80202; 81003; 83880; 84484; 85025; 85610-TC; 85651-TC; 85730-TC; 86140; 86886; 86900; 86901; 87040; 87070-TC; 87075-TC; 87081; 87186-TC; 88305; 89051-TC; 93005; 93306; 96360; 97110-GP; 97116-GP; 97530-GP; 99285; C1713; C1751; C1776; J0131; J0360; J0690; J1100; J1170; J1644; J1885; J2405; J2704; J3010; J3370; J3465; J3490; J7050; J7060; J7120